=== PATIENT | male | born 1990 | race African-American/Black ===

== ENCOUNTER 2021-04-03 13:43 | Emergency (ER) | payer OTHER ==
[~2021-04-03] VITALS: Ht 190.5 cm; Wt 79.4 kg
[2021-04-03] MEDS ORDERED: IBUPROFEN 800800 MG PO (14:59)
[2021-04-03] MEDS ORDERED: FLEXERIL PO (14:59)
[2021-04-03] MEDS ORDERED: TYLENOL325 M1 PO (14:59)
[2021-04-03 15:39] VITALS: BP 106/41
== END 2021-04-03 15:40 | disposition home or self-care (01) ==
LOC: ER 13:43
DX: S00.33XA Contusion of nose, initial encounter (principal); S16.1XXA Strain of muscle, fascia and tendon at neck level, initial encounter; V43.52XA Car driver injured in collision with other type car in traffic accident, initial encounter; Y93.I9 Activity, other involving external motion; Y92.89 Other specified places as the place of occurrence of the external cause; Y99.8 Other external cause status